=== PATIENT | female | born 1990 | race Caucasian/White ===

== ENCOUNTER 2017-09-08 21:01 | Emergency (ER) | payer BC ==
[~2017-09-08] VITALS: Ht 172.7 cm; Wt 74.2 kg
[2017-09-08 22:02] LABS: Basophils # (auto) 0 uL; Basophils % (auto) 0.2 % (0.0-2.0); Eosinophils # (auto) 0 uL; Eosinophils % (auto) 0.4 % (0.0-7.0); Hematocrit 37.4 % (36.0-46.0); Hemoglobin 12.8 g/dL (12.2-16.2); Lymphocytes % (auto) 28.4 % (10.0-50.0); Mean Corpuscular Hemoglobin 33.7 pg (28.0-32.0); Mean Corpuscular Hgb Conc. 34.3 g/dL (32.0-36.0); Mean Corpuscular Volume 98.3 fL (80.0-100.0); Monocytes # (auto) 0.5 uL; Monocytes % (auto) 7.6 % (0.0-12.0); Neutrophils # (auto) 4.6 uL; Neutrophils % (auto) 63.4 % (37.0-80.0); Nucleated Red Blood Cells % 0.2 %; Platelet Count (auto) 320 10^3/uL (140-450); Red Cell Distribution Width 12.5 % (11.8-14.3); White Blood Cell 7.2 10^3/uL (4.4-10.8)
[2017-09-08 22:24] LABS: Albumin 3.5 g/dL (3.4-5.0); Bilirubin, Total 0.1 mg/dL (0.2-1.0); Calcium 8.8 mg/dL (8.5-10.1); Potassium 3.6 mmol/L (3.5-5.1); Total Protein 7.9 g/dL (6.4-8.2)
[2017-09-08 23:08] LABS: Urine Bacteria NONE SEEN /hpf (None Seen); Urine Blood Negative /uL (Negative); Urine Specific Gravity 1.003 (1.001-1.035); Urine WBC 1 /hpf (0 - 5)
[2017-09-09 07:32] VITALS: BP 108/61
== END 2017-09-09 07:34 | disposition home or self-care (01) ==
LOC: ER 21:01
DX: O9A.212 Injury, poisoning and certain other consequences of external causes complicating pregnancy, second trimester (principal); S33.5XXA Sprain of ligaments of lumbar spine, initial encounter; M54.9 Dorsalgia, unspecified; Z3A.17 17 weeks gestation of pregnancy; Z91.013 Allergy to seafood; X58.XXXA Exposure to other specified factors, initial encounter; Y93.89 Activity, other specified; Y99.8 Other external cause status; Y92.89 Other specified places as the place of occurrence of the external cause
CPT/HCPCS: 36415; 76805; 80053; 81001; 84702; 85025